=== PATIENT | male | born 1995 | race Caucasian/White ===

== ENCOUNTER 2023-07-02 11:01 | Emergency (ER) | payer OTHER, SELFPAY ==
--- NOTE | 2023-07-02 11:10 | ED.GENADULT ---
HPI - General Adult General Chief complaint: Head Injury Stated complaint: Head Injury Time Seen by Provider: 07/02/23 11:13 Source: patient and RN notes reviewed Mode of arrival: ambulatory Limitations: no limitations History of Present Illness HPI narrative: 27-year-old male presented for concern of concussion. Endorses injury today, stating while he was at work he entered a pool using the stairs, the stairs dislodged from the side, and caused him to fall about 3 feet. Endorses hitting his tailbone first, and remembers laying flat on his back. Unsure if he hit his head or LOC. States about 5 minutes later he felt 'loopy and tired.' Endorses mild nausea and feels an occasional pulse/throbbing sensation to the back of his head and feels mildly lightheaded. Currently denies headache, vomiting, vision changes, confusion, cp, palpitations. Has not taken anything for pain. Related Data Home Medications Medication Instructions Recorded Confirmed No Home Medications 07/02/23 07/02/23 Allergies Allergy/AdvReac Type Severity Reaction Status Date / Time Penicillins Allergy Rash Verified 07/02/23 11:13 Review of Systems Review of Systems: CONSTITUTIONAL: Denies body aches, fever, chills, or sweats. EYES: Denies visual changes, photophobia ENT: Denies rhinorrhea, epistaxis CARDIOVASCULAR: Denies chest pain, palpitations, or edema. RESPIRATORY: Denies cough or dyspnea. SKIN: Denies wounds. MUSCULOSKELETAL: Denies back pain, neck pain NEUROLOGIC: denies headache, numbness, tingling, or weakness, reports mild lightheaded All systems reviewed & are unremarkable except as noted in HPI and below PMFSH Comments At time of signature, I have reviewed and agree with nursing past medical, surgical, social and family history unless otherwise noted. Please see nursing chart for further information. There is no relevant family history pertinent to the presenting complaint Exam Narrative: GENERAL: Well-appearing, well-nourished HEAD: Normocephalic, atraumatic. No contusion/lac to posterior head, nontender with palpation EYES: PERRLA, EOMI. ENT: Mucous membranes pink and moist. No epistaxis. TMs normal bilaterally. NECK: Normal AROM. Supple. full ROM CHEST: No respiratory distress. Clear to auscultation. HEART: Regular rate and rhythm. No murmur appreciated. Normal peripheral pulses. MUSCULOSKELETAL: No bony tenderness. EXTREMITIES: Normal range of motion. No edema. SKIN: Warm, dry, no wounds. Capillary refill normal. Normal skin turgor. NEURO:No focal deficits. Alert and oriented x3. Finger to nose intact bilaterally. EOMs intact without nystagmus. No facial droop/asymmetry noted bilaterally. Grimace intact. Intact sensation in face. Hearing intact bilaterally. Shoulder shrug intact. Strength 5/5 bilateral upper extremities. Strength 5/5 bilateral lower extremities. Ambulatory exam with a normal based, steady gait. Course Course Emergency Course: Patient is aware of diagnosis, understands and agrees to treatment plan. Anticipatory guidance given. Patient agrees to follow-up as directed and is aware of reasons to seek care at the emergency department. Portions of this record may have been created with voice recognition software Level of Care: [facility] Visit Medical Decision Making MDM Narrative Medical decision making narrative: The patient was evaluated in the [facility] for lightheadedness after possible head injury today. Patient denies headache. There are no focal deficits on exam. There is no history of fever, neck is supple without meningismus. No signs of trauma on exam. Overall well appearing. Discussed physical exam findings and s/s concussion. Advised supportive measures and signs/symptoms to go to the ER. Pt is appropriate for outpt treatment and f/u. Discussed elevated bp reading. Differential Diagnosis Differential Diagnosis: hypertension, hypertensive urgency/crisis, headache, migraine, C
[2023-07-02 11:13] VITALS: BP 141/100; PULSE 68; RESP 18; TEMP 36.5; O2SAT 100
[2023-07-02 11:14] VITALS: BP 141/100; PULSE 68; RESP 18; TEMP 36.5; O2SAT 100
[2023-07-02 11:29] VITALS: BP 136/94
== END 2023-07-02 11:32 | disposition home or self-care (01) ==
PROVIDERS: Emergency Provider Nurse Practitioner Family
DX: R42 Dizziness and giddiness (principal)
CPT/HCPCS: 99213; G0463